=== PATIENT | female | born 1965 | race Caucasian/White ===

== ENCOUNTER → 2017-05-14 | Outpatient (CLI) | payer OTHER | LOC: MC.RAD 10:09 | DX: Z12.31 Encounter for screening mammogram for malignant neoplasm of breast (principal) ==

== ENCOUNTER → 2018-07-29 | Outpatient (CLI) | payer BC | LOC: MC.RAD 06-24 11:40 | DX: Z12.31 Encounter for screening mammogram for malignant neoplasm of breast (principal) ==

== ENCOUNTER → 2019-07-31 | Outpatient (CLI) | payer BC | LOC: MC.RAD 10:04 | DX: Z12.31 Encounter for screening mammogram for malignant neoplasm of breast (principal) ==

== ENCOUNTER 2020-11-24 13:55 | Outpatient (CLI) | payer BC ==
[~2020-11-24] VITALS: Ht 154.9 cm; Wt 59.0 kg
[2020-11-24 14:15] VITALS: BP 145/73; PULSE 82; TEMP 98.3
[2020-11-24 14:30] VITALS: BP 140/90; PULSE 70
[2020-11-24 14:45] VITALS: BP 134/83; PULSE 90
[2020-11-24 15:15] VITALS: BP 140/85; PULSE 76
[2020-11-24 15:45] VITALS: BP 133/76; PULSE 74; TEMP 100.1
== END 2020-11-24 16:01 | disposition home or self-care (01) ==
LOC: EUO 13:55
DX: U07.1 COVID-19 (principal)

== ENCOUNTER → 2021-02-09 | Outpatient (CLI) | payer BC | LOC: MC.RAD 13:09 | DX: Z12.31 Encounter for screening mammogram for malignant neoplasm of breast (principal) ==

== ENCOUNTER → 2022-02-28 | Outpatient (CLI) | payer BC | LOC: MC.RAD 08:49 | DX: Z12.31 Encounter for screening mammogram for malignant neoplasm of breast (principal) ==

== ENCOUNTER → 2023-02-02 | Outpatient (CLI) | payer BC | LOC: COL.RAD 14:04 | DX: Z12.2 Encounter for screening for malignant neoplasm of respiratory organs (principal); Z72.0 Tobacco use ==